=== PATIENT | male | born 1955 | race Caucasian/White ===

== ENCOUNTER → 2016-10-17 | Outpatient (CLI) | payer OTHER ==
--- NOTE | 2016-10-18 13:19 | PCVCIMAG ---
APPROVED REPORT Exam: Stress Echocardiogram Indication: CAD , Hyperlipidemia, Chest pain Patient Location: Echo lab Stress Nurse: Yaneli King RN Status: routine Ht: 5 ft 11 in HR: 63 bpm BP: 152/88 mmHg Rhythm: NSR Medical History Medical History: CAD non obstructive, Tobacco history (Current/Recent),CKD,HCL Cardiac Risk Factors: Hyperlipidemia, FHX of CAD, Smoking Pretest Chest Pain Characteristics: No chest pain Exercise History: Sedentary Procedure The patient underwent an Exercise Stress Test using the Diana Protocol. Blood pressure, heart rate, and EKG were monitored. An Echocardiogram was performed by audio/video technician in four stages in quad fashion. At peak stress, four selected images were obtained and placed side by side with resting images for comparison. Stress Test Details Stress Test: Exercise stress testing was performed using a Diana protocol. HR Resting HR: 65 bpmMax Heart Rate (APMHR): 157 bpm Max HR Achieved: 153 bpmTarget HR (85% APMHR): 133 bpm % of APMHR: 97 Recovery HR: 99 bpm HR response to stress: Normal HR response to stress BP Resting BP: 152/88 mmHg Max BP: 218/96 mmHg Recovery BP: 186/88 mmHg ECG Resting ECG: Sinus Rhythm Stress ECG: Sinus Rhythm ST Change: Upsloping ST depression Maximum ST Deviation: 2.45 mm Arrhythmia: Rare PVCs Recovery ECG: Sinus Rhythm Recovery ST Change: Upsloping ST depression Recovery ST Deviation: 1.10 mm Recovery Arrhythmia: None Clinical Reason for Termination: Maximal effort Stress Symptoms: none Exercise duration: 7 min sec Highest Stage Achieved: Stage 3: 3.4 mph at 14% grade. Exercise capacity: 10.1 METs Overall Exercise Capacity for Age: Poor Angina Score: None Stress ECG Conclusion The patient exercised according to the DIANA protocol for 7:00 minutes, achieving a work level of Max. METS: 10.1 . The resting heart rate of 63 bpm mai to a maximal heart rate of 155 bpm. This value represents 98% of the maximal, age-predicted heart rate. The resting blood pressure of 152/88 mmHg, mai to a maximum blood pressure of 218/96 mmHg. The exercise test was stopped due to fatigue . Rojas Treadmill Score is -5.3 which is Moderate risk. Pre-Stress Echo The resting Echocardiogram showed normal left ventricular contractility with an estimated Ejection Fraction of about 55-60%. Normal wall motion in all segments on baseline images. Post-Stress Echo The stress Echocardiogram showed normal left ventricular contractility with an estimated Ejection Fraction of about 65-70%. Normal augmentation of wall motion in all segments on post stress images. Clinical No clinical or ECG evidence for ischemia. Conclusion Clinical Response: Non-ischemic Exercise Capacity: Below Average Stress ECG Response: Non-ischemic Stress Echo Images: Non-ischemic No clinical, EKG or echocardiographic evidence for ischemia. No echocardiographic evidence for exercise induced ischemia. Normal stress echocardiogram with maximal exercise stress. <Conclusion> No clinical, EKG or echocardiographic evidence for ischemia. No echocardiographic evidence for exercise induced ischemia. Normal stress echocardiogram with maximal exercise stress.
== END | disposition home or self-care (01) ==
LOC: PCVCIMAG 13:39
PROVIDERS: ATTEND Internal Medicine Cardiovascular Disease
DX: I49.3 Ventricular premature depolarization (principal); I25.10 Atherosclerotic heart disease of native coronary artery without angina pectoris; E78.5 Hyperlipidemia, unspecified; I10 Essential (primary) hypertension; Z87.891 Personal history of nicotine dependence; Z82.49 Family history of ischemic heart disease and other diseases of the circulatory system
CPT/HCPCS: 93325; 93351